=== PATIENT | male | born 1990 | race Caucasian/White ===

== ENCOUNTER 2020-03-04 20:49 | Emergency (ER) | payer OTHER ==
[~2020-03-04] VITALS: Ht 177.8 cm; Wt 99.8 kg
--- NOTE | 2020-03-04 21:18 | NUR ---
PT AAOX4. BIBSELF C/O L RING AND PINKY FINGER LACERATION W/ HAND SLICER. PA AT BEDSIDE FOR EVAL. EMT AT BEDSIDE FOR WOUND CARE. AWAITING ORDERS. PT STATED TDAP UP TO DATE. NO ACUTE DISTRESS NOTED. VSS.
[2020-03-04] MEDS ORDERED: GELATIN SPONGE,ABSORBABLE 1 SPONGE SPONGE TP ONE (21:24)
--- NOTE | 2020-03-04 21:50 | NUR ---
Patient discharged to home in stable condition. Written and verbal after care instructions given. Patient verbalizes understanding of instruction. Pt L hand wrapped. VSS. Kory pain.
[2020-03-04 21:51] VITALS: BP 131/72
== END 2020-03-04 21:51 | disposition home or self-care (01) ==
LOC: ER 20:51
DX: S61.205A Unspecified open wound of left ring finger without damage to nail, initial encounter (principal); S61.207A Unspecified open wound of left little finger without damage to nail, initial encounter; Z88.1 Allergy status to other antibiotic agents; W45.8XXA Other foreign body or object entering through skin, initial encounter; Y93.89 Activity, other specified; Y92.89 Other specified places as the place of occurrence of the external cause; Y99.8 Other external cause status
CPT/HCPCS: 99282; A6403